=== PATIENT | female | born 1960 | race Caucasian/White ===

== ENCOUNTER 2022-06-26 09:00 | Outpatient (RCR) | payer BC, MEDICARE, SELFPAY | END 2022-06-26 13:01 | disposition home or self-care (01) | PROVIDERS: PCP Physician Assistant Medical; Visit Provider Family Medicine | DX: N39.46 Mixed incontinence (principal); M62.89 Other specified disorders of muscle; M15.9 Polyosteoarthritis, unspecified; R27.8 Other lack of coordination; K59.00 Constipation, unspecified; R10.2 Pelvic and perineal pain; M25.561 Pain in right knee; G89.29 Other chronic pain; Z51.89 Encounter for other specified aftercare | CPT/HCPCS: 97012; 97110; 97112; 97162; 97535 ==

== ENCOUNTER 2023-07-25 10:45 | Outpatient (RCR) | payer BC, MEDICARE, SELFPAY | END 2023-10-25 08:17 | disposition home or self-care (01) | PROVIDERS: PCP Physician Assistant Medical; Visit Provider Family Medicine | DX: M75.101 Unspecified rotator cuff tear or rupture of right shoulder, not specified as traumatic (principal); M25.512 Pain in left shoulder; Z51.89 Encounter for other specified aftercare | CPT/HCPCS: 97110; 97162 ==

== ENCOUNTER 2024-11-05 09:15 | Outpatient (RCR) | payer BC, MEDICARE, SELFPAY | END 2024-12-16 07:45 | disposition home or self-care (01) | PROVIDERS: PCP Physician Assistant Medical; Visit Provider Podiatrist Foot & Ankle Surgery | DX: S86.30 Unspecified injury of muscle(s) and tendon(s) of peroneal muscle group at lower leg level (principal); M25.571 Pain in right ankle and joints of right foot; M20.10 Hallux valgus (acquired), unspecified foot; Z51.89 Encounter for other specified aftercare | CPT/HCPCS: 97110; 97112; 97116; 97140; 97162 ==